=== PATIENT | female | born 1950 | race African-American/Black ===

== ENCOUNTER 2017-08-06 08:22 | Day surgery (SDC) | payer OTHER ==
[~2017-08-06] VITALS: Ht 157.5 cm; Wt 41.9 kg
[2017-08-06 08:56] VITALS: PULSE 64; TEMP 98
[2017-08-06] MEDS ORDERED: CATAPRES 0.1MG0.1 MG PO (09:17)
[2017-08-06] MEDS ORDERED: XALATAN EYE DROPS OU (09:18)
[2017-08-06 10:45] VITALS: BP 166/90; PULSE 61; TEMP 97
[2017-08-06 11:00] VITALS: BP 159/94; PULSE 54
== END 2017-08-06 11:25 | disposition home or self-care (01) ==
LOC: SDCO 08:22
DX: Z12.11 Encounter for screening for malignant neoplasm of colon (principal); K57.30 Diverticulosis of large intestine without perforation or abscess without bleeding; K64.1 Second degree hemorrhoids; Z86.010 Personal history of colon polyps; Z80.0 Family history of malignant neoplasm of digestive organs
CPT/HCPCS: J2250; J3010; J7030

== ENCOUNTER → 2018-05-25 | Outpatient (CLI) | payer OTHER ==
[~2018-05-25] MED LIST: CATAPRES 0.1MG0.1 MG PO; XALATAN EYE DROPS OU
== END ==
LOC: MC.RAD 10:29
DX: Z12.31 Encounter for screening mammogram for malignant neoplasm of breast (principal)

== ENCOUNTER 2022-04-16 08:27 | Day surgery (SDC) | payer OTHER ==
[~2022-04-16] VITALS: Ht 157.5 cm; Wt 82.5 kg
[2022-04-16 09:54] VITALS: BP 162/87; PULSE 100; TEMP 98.8
[2022-04-16 12:36] VITALS: BP 125/62; PULSE 96; TEMP 97.9
[2022-04-16 12:51] VITALS: BP 124/53; PULSE 70
[2022-04-16 13:06] VITALS: BP 142/59; PULSE 72
[2022-04-16 13:21] VITALS: BP 142/58; PULSE 72
[2022-04-16 13:51] VITALS: BP 127/53; PULSE 82
--- NOTE | 2022-04-16 14:20 | NUR ---
1236 RETURNS TO ROOM 5 FROM OR PER CART. PATIENT DROWSY, BUT AROUSES EASILY TO VERBAL STIMULI. FAMILIAIRIZED WITH SURROUNDINGS. RESP UNLABORED. LUNG SOUNDS CLEAR WITH AUSCULTATION. DEEP BREATHES WELL ON REQUEST. BANDAID AND GAUZE IN PLACE TO LEFT CHEST. CLEAND AND DRY. DENIES PAIN. SIDE RAILS UP, CALL LIGHT AT SIDE. 1310 DOSES AT INTERVALS AROUSES EASILY. DENIES NEEDS. DRESSING UNCHANGED. 1340 TOLERATES PO WATER WITHOUT NAUSEA. REFUSES SNACK. 1358 DISCHARGE INSTRUCTIONS REVIEWED. PATIENT VERBALIZES UNDERSTANDING. COPY OF INSTRUCTIONS PROVIDED IN DISCHARGE FOLDER. 1410 SITS IN CHAIR AT BEDSIDE. DRESSES SELF.
== END 2022-04-16 14:20 | disposition home health service (06) ==
LOC: SDCO 08:27
DX: Z45.2 Encounter for adjustment and management of vascular access device (principal); C11.9 Malignant neoplasm of nasopharynx, unspecified; Z87.891 Personal history of nicotine dependence
CPT/HCPCS: C1788; J0690; J1100; J1644; J2405; J2704; J3010; J7120